=== PATIENT | male | born 1945 | race African-American/Black ===

== ENCOUNTER → 2016-11-11 | Outpatient (CLI) | payer BC | LOC: EDBD 07:12 → HYPER 07:12 | DX: I87.311 Chronic venous hypertension (idiopathic) with ulcer of right lower extremity (principal); L97.811 Non-pressure chronic ulcer of other part of right lower leg limited to breakdown of skin; I10 Essential (primary) hypertension; Z72.89 Other problems related to lifestyle ==

== ENCOUNTER → 2016-11-18 | Outpatient (CLI) | payer BC | LOC: HYPER 07:14 | DX: I87.311 Chronic venous hypertension (idiopathic) with ulcer of right lower extremity (principal); L97.811 Non-pressure chronic ulcer of other part of right lower leg limited to breakdown of skin; Z72.89 Other problems related to lifestyle ==

== ENCOUNTER → 2016-11-25 | Outpatient (CLI) | payer BC | LOC: HYPER 07:07 | DX: I87.311 Chronic venous hypertension (idiopathic) with ulcer of right lower extremity (principal); L97.811 Non-pressure chronic ulcer of other part of right lower leg limited to breakdown of skin; Z72.89 Other problems related to lifestyle ==

== ENCOUNTER → 2016-12-02 | Outpatient (CLI) | payer BC | LOC: HYPER 07:07 | DX: I87.311 Chronic venous hypertension (idiopathic) with ulcer of right lower extremity (principal); L97.811 Non-pressure chronic ulcer of other part of right lower leg limited to breakdown of skin; Z72.89 Other problems related to lifestyle ==

== ENCOUNTER → 2016-12-10 | Outpatient (CLI) | payer BC | LOC: HYPER 07:02 | DX: I87.311 Chronic venous hypertension (idiopathic) with ulcer of right lower extremity (principal); L97.811 Non-pressure chronic ulcer of other part of right lower leg limited to breakdown of skin; Z72.89 Other problems related to lifestyle ==

== ENCOUNTER → 2016-12-18 | Outpatient (CLI) | payer BC | LOC: HYPER 07:05 | DX: I87.311 Chronic venous hypertension (idiopathic) with ulcer of right lower extremity (principal); L97.811 Non-pressure chronic ulcer of other part of right lower leg limited to breakdown of skin; R60.0 Localized edema; Z72.89 Other problems related to lifestyle ==

== ENCOUNTER → 2016-12-25 | Outpatient (CLI) | payer BC | LOC: HYPER 06:53 | DX: I87.311 Chronic venous hypertension (idiopathic) with ulcer of right lower extremity (principal); L97.811 Non-pressure chronic ulcer of other part of right lower leg limited to breakdown of skin; I10 Essential (primary) hypertension; Z72.89 Other problems related to lifestyle ==

== ENCOUNTER → 2017-01-01 | Outpatient (CLI) | payer BC | LOC: HYPER 07:10 | DX: I87.311 Chronic venous hypertension (idiopathic) with ulcer of right lower extremity (principal); L97.811 Non-pressure chronic ulcer of other part of right lower leg limited to breakdown of skin; I10 Essential (primary) hypertension; Z72.89 Other problems related to lifestyle ==

== ENCOUNTER → 2017-01-08 | Outpatient (CLI) | payer BC | LOC: HYPER 07:08 | DX: I87.311 Chronic venous hypertension (idiopathic) with ulcer of right lower extremity (principal); L97.811 Non-pressure chronic ulcer of other part of right lower leg limited to breakdown of skin; Z72.89 Other problems related to lifestyle ==